=== PATIENT | female | born 1995 | race Asian ===

== ENCOUNTER 2024-07-20 13:22 | Emergency (ER) | payer SELFPAY ==
[2024-07-20 13:24] VITALS: BP 160/106
--- NOTE | 2024-07-20 13:28 | ED.GENMED ---
ED Provider Triage
<Usman Olson PA-C - Last Filed: 07/20/24 13:39>
-
Patient seen by provider in Triage?: Seen in Triage
Attestation: A medical screening examination has been initiated by a qualified medical provider. Based on the assessment performed at this time, it has been determined that an emergent medical condition may exist and the patient has been informed
that further medical evaluation and possible additional diagnostic testing may be needed.
HPI: 29-year-old female presents the emergency department due to vaginal bleeding. She states that this began with her normal menstrual cycle however has not tapered off as expected. Has not been bleeding for 10 days. 4-5 tampons or pads daily.
Denies shortness of breath or fatigue. Came to the ER because her LOAD CHECKER did not return her phone calls
GENERAL: Alert , in no apparent distress
EYE: No visual abnormalities.
NECK: Trachea midline
ENT: No visible abnormalities.
LUNGS: No acute respiratory distress
NEUROLOGICAL: Alert and oriented
SKIN: Skin intact. No visible changes.
MUSCULOSKELETAL: Moving extremities normally
PSYCH: Normal and appropriate interaction.
This is a medical evaluation conducted in person to initiate diagnostic evaluation and provide initial therapeutics. Please see further documentation by the treating clinician.
History of Present Illness
<Usman Olson PA-C - Last Filed: 07/20/24 13:39>
General
Chief Complaint: Vaginal Bleeding
Time Seen by Provider: 07/20/24 15:33
<Jaye Duenas PA-C - Last Filed: 07/21/24 00:16>
General
Source: patient
Exam Limitations: none
Nursing documentation reviewed up to this point in time: agreed with
History of Present Illness
History of Present Illness:
Patient is a 29-year-old female presenting for evaluation of vaginal bleeding. Patient states that she has had menstrual bleeding for the past 10 days, which seem to get slightly heavier recently. Patient states bleeding initially started as
her scheduled menstrual cycle but has not stopped. Patient denies any abdominal pain. Patient denies any chest pain, shortness of breath, lightheadedness, dizziness, etc. Patient is not sexually active.
Of note�patient does have a history of heavy periods for which she was recently started on an OCP. She has been taking OCP for 2.5 weeks although stopped due to the bleeding because she became nervous. Patient did have a pelvic ultrasound in
June which did not show any abnormalities. She does have an LOAD CHECKER who is located in [place] although has not contacted them yet.
Review of Systems
<Jaye Duenas PA-C - Last Filed: 07/21/24 00:16>
Review of Systems
Allergies reviewed?: Yes
All Other Systems: ROS reviewed and negative except as documented in HPI and ROS
Phy Exam
<Jaye Duenas PA-C - Last Filed: 07/21/24 00:16>
Physical Exam
Physical Exam:
Vitals: Patient's vital signs are stable. Afebrile
General: Patient is well appearing, no acute distress. Nontoxic appearing
Skin: Warm and dry, no rashes or lesions
Head: Normocephalic, atraumatic
Eyes: Sclera nonicteric. EOMs intact. No nystagmus.
Throat: Protecting airway
Neck: Normal ROM, no cervical spine tenderness, no meningismus
Cardiac: Regular rate and rhythm, no murmurs.
Pulm: Normal respiratory effort, no wheezes, rales, rhonchi heard on exam.
Abdomen: Abdomen soft and nontender
Extremities: No evidence of cyanosis or edema
Neuro: AAOx3. Grossly intact.
Psychiatric: Normal affect.
Course
<Usman Olson PA-C - Last Filed: 07/20/24 13:39>
Orders/Labs/Results
Orders:
Orders
07/20/24 13:28
Test Result ONCE
07/20/24 13:32
Complete Blood Count/With Diff Urgent
Comprehensive Metabolic Panel Urgent
HCG, Serum Qualitative Screen Urgent
Abnormal Lab Results
07/20/24
13:32
RBC 4.08 L 10^6/uL
(4.20-5.40)
Hgb 10.1 L g/dL
(12.0-16.0)
Hct 32.0 L %
(37.0-47.0)
MCV 78.4 L fL
(81.0-99.0)
MCH 24.8 L pg
(27.0-31.0)
MCHC 31.6 L g/dL
(33.0-37.0)
RDW 15.1 H %
(11.5-14.5)
MPV 12.8 H fL
(7.4-10.4)
Carbon Dioxide 21 L mmol/L
(22-30)
Creatinine 0.5 L mg/dL
(0.6-1.0)
Glucose 145 H mg/dl
(70-99)
07/20/24 13:32
07/20/24 13:32
Vital Signs
Initial and Last Documented VS:
Initial Vital Signs
Temp Pulse Resp BP Pulse Ox
98.1 F 93 20 160/106 100
07/20/24 13:24 07/20/24 13:24 07/20/24 13:24 07/20/24 13:24 07/20/24 13:24
Last Documented Vital Signs
Temp Pulse Resp BP Pulse Ox
99.2 F 92 18 146/91 100
07/20/24 15:07 07/20/24 15:07 07/20/24 15:07 07/20/24 15:07 07/20/24 15:07
<Jaye Duenas PA-C - Last Filed: 02/05/25 00:16>
Orders/Labs/Results
Orders:
Orders
07/20/24 13:28
Test Result ONCE
07/20/24 13:32
Complete Blood Count/With Diff Urgent
Comprehensive Metabolic Panel Urgent
HCG, Serum Qualitative Screen Urgent
Abnormal Lab Results
07/20/24
13:32
RBC 4.08 L 10^6/uL
(4.20-5.40)
Hgb 10.1 L g/dL
(12.0-16.0)
Hct 32.0 L %
(37.0-47.0)
MCV 78.4 L fL
(81.0-99.0)
MCH 24.8 L pg
(27.0-31.0)
MCHC 31.6 L g/dL
(33.0-37.0)
RDW 15.1 H %
(11.5-14.5)
MPV 12.8 H fL
(7.4-10.4)
Carbon Dioxide 21 L mmol/L
(22-30)
Creatinine 0.5 L mg/dL
(0.6-1.0)
Glucose 145 H mg/dl
(70-99)
07/20/24 13:32
07/20/24 13:32
Vital Signs
Initial and Last Documented VS:
Initial Vital Signs
Temp Pulse Resp BP Pulse Ox
98.1 F 93 20 160/106 100
07/20/24 13:24 07/20/24 13:24 07/20/24 13:24 07/20/24 13:24 07/20/24 13:24
Last Documented Vital Signs
Temp Pulse Resp BP Pulse Ox
99.2 F 92 18 146/91 100
07/20/24 15:07 07/20/24 15:07 07/20/24 15:07 07/20/24 15:07 07/20/24 15:07
<Tera Castañeda MD - Last Filed: 07/20/24 16:37>
Orders/Labs/Results
Orders:
Orders
07/20/24 13:28
Test Result ONCE
07/20/24 13:32
Complete Blood Count/With Diff Urgent
Comprehensive Metabolic Panel Urgent
HCG, Serum Qualitative Screen Urgent
Abnormal Lab Results
07/20/24
13:32
RBC 4.08 L 10^6/uL
(4.20-5.40)
Hgb 10.1 L g/dL
(12.0-16.0)
Hct 32.0 L %
(37.0-47.0)
MCV 78.4 L fL
(81.0-99.0)
MCH 24.8 L pg
(27.0-31.0)
MCHC 31.6 L g/dL
(33.0-37.0)
RDW 15.1 H %
(11.5-14.5)
MPV 12.8 H fL
(7.4-10.4)
Carbon Dioxide 21 L mmol/L
(22-30)
Creatinine 0.5 L mg/dL
(0.6-1.0)
Glucose 145 H mg/dl
(70-99)
07/20/24 13:32
07/20/24 13:32
Vital Signs
Initial and Last Documented VS:
Initial Vital Signs
Temp Pulse Resp BP Pulse Ox
98.1 F 93 20 160/106 100
07/20/24 13:24 07/20/24 13:24 07/20/24 13:24 07/20/24 13:24 07/20/24 13:24
Last Documented Vital Signs
Temp Pulse Resp BP Pulse Ox
99.2 F 92 18 146/91 100
07/20/24 15:07 07/20/24 15:07 07/20/24 15:07 07/20/24 15:07 07/20/24 15:07
<Jaye Duenas PA-C - Last Filed: 07/21/24 00:16>
MDM/Problems Addressed
Differential Diagnosis Includes:
Not limited to: Abnormal uterine bleeding, uterine fibroid, menstrual period, malignancy, etc.
MDM/Problems Addressed:
29-year-old female presenting with 10 days of abnormal uterine bleeding. No associated dizziness, lightheadedness, shortness of breath, abdominal pain. She was recently started on OCP by LOAD CHECKER. Patient is hemodynamically stable. Labs were sent
off in triage which show an anemia of 10.1. Patient does report her baseline hemoglobin is between 8-9 so this is actually improved. Chemistry without significant abnormalities. hCG negative. On physical exam�patient is in no apparent distress.
Abdomen is soft and nontender. Patient declines pelvic exam. I did contact patient's LOAD CHECKER who reviewed patient's very recent pelvic ultrasound report which showed no abnormalities. Ultimately�they recommend patient restarting OCP and staying
compliant with medication. Given patient's persistent bleeding�will trial TXA which was discussed with patient. She is agreeable to this. Ultimately�no indication for hospitalization. Patient's hemoglobin trending up. Patient remains
hemodynamically stable and well-appearing. Feel that she is stable for discharge home with LOAD CHECKER follow-up outpatient and very close return precautions. Patient expressed her understanding. Case seen with attending physician.
Chronic conditions affecting care:
N/A
Acute Exacerbation and/or Progression of Chronic Illness:
N/A
<Jaye Duenas PA-C - Last Filed: 07/21/24 00:16>
*Pulse Oximetry
Patient hypoxic: no
*EKG
Interpreted by ED Provider?: NA
*Coach Builder Interpretation
Rate: Coach Builder- N/A
*Critical Care Note
Total Time (30-74mins, 75-104mins- exclusive of procedures): Not Applicable
ED Attending Note
<Usman Olson PA-C - Last Filed: 07/20/24 13:39>
-
Portions of this chart may have been created with voice recognition software.� Occasional wrong word or��sound alike� substitutions may have occurred due to the inherent limitations of voice recognition software.
<Tera Castañeda MD - Last Filed: 07/20/24 16:37>
ED Attending Note
Patient seen and examined by attending physician: Yes
ED Attending Note:
I have seen and evaluated the patient with a [id number]-[id number] encounter. I have spoken to the advance practicer provider and involved in the medical history, the physical exam, medical decision making.
Evaluation and management service: agree unless noted differently below.
Results interpretation: agree unless noted differently below.
Focused HPI: 29-year-old female with no reported chronic issues presents to the ER for vaginal bleeding. She says that she has been dealing with heavy periods for quite some time. Saw an LOAD CHECKER in [place] and was prescribed control pills
and she has been taking these for the past few weeks although she skipped a dose yesterday. She says that her current menstrual period has lasted for longer than usual she says she usually bleeds for about 5 or 6 days but she has been bleeding for
about 10 days. She says she is today so through a pad every 2-3 hours. She denies any significant abdominal pain or cramping. She was concerned about this prolonged bleeding and so she came to the ER for assessment. She denies any other
complaints. She does have chronic anemia she says she takes an iron supplement.
Physical exam: Awake alert not in distress. Marginally hypertensive on my assessment 146/91. Heart rate 80s. Rest of vitals normal. Abdomen soft nontender to deep palpation. Patient declined pelvic exam.
Medical Decision Makin-year-old female presents for evaluation of dysfunctional uterine bleeding. She has been following with LOAD CHECKER and has been prescribed control pills. We sent off labs including a CBC which shows mild anemia�patient
reports baseline between 8 and 9 today is at 10. CMP no clinically significant abnormalities. hCG is negative. PA called patient's LOAD CHECKER recommended reinforcing compliance with OCPs and bleeding precautions. At this point no clear indication
for hospitalization. I do think it be reasonable to trial some TXA for her bleeding. Patient feels comfortable with this plan. We spoke in detail about return precautions including detailed bleeding precautions. All questions answered.
Discharge Plan
Departure
Patient Disposition: Home (Routine Discharge)
Date of Disposition: 07/20/24
Time of Disposition: 16:30
Patient with high blood pressure during this ER visit?: Yes
Condition: Good
Discharge Problem:
Vaginal bleeding
Instructions: Heavy Periods (DC), BLOOD PRESSURE
Prescriptions:
New
tranexamic acid 650 mg tablet
1,300 mg PO TID 5 Days Qty: 30 0RF
Referrals:
Melissa Cotton MD [Non-Admitting Privileges] - Tomorrow
Kaitlin Moore CRNP [Family Provider] -
Activity Restrictions/Additional Instructions:
Return to the emergency department with any persistent, heavy bleeding or bleeding associate with shortness of breath, lightheadedness, dizziness, severe abdominal pain, worsening current symptoms, or any other concerns
-As discussed�it is important that you restart your oral contraceptive pill and take it daily at the same time. You should continue her iron supplement as well
-A prescription for tranexamic acid has been sent to your pharmacy which may help in stopping the bleeding. You can take this 3 times a day for up to 5 days or until the bleeding stops.
-It is important stable hydrated.
-Contact her LOAD CHECKER tomorrow for further guidance and treatment
Monitor your symptoms closely and return to the emergency department with any acute worsening/new symptoms or any other concerns
Interventions
Interventions:
*Risk Screen - Suicide Last Done: 07/20/24 13:24
*General Assessment Last Done: 07/20/24 13:24
*Neglect/Abuse Screening Last Done: 07/20/24 13:24
ED- Fall Risk Assessment Last Done: 07/20/24 13:40
*ED COVID-19 Vaccine History Last Done: 07/20/24 13:40
*Nursing Disposition Last Done: 07/20/24 16:46
ED-Female Genitourinary Assessment Last Done: 07/20/24 13:43
Discharge Date and Time
Discharge Date/Time: 07/20/24 16:47
Print Language: LITHUANIAN
[2024-07-20 13:40] VITALS: BMI 24.9
[2024-07-20 14:02] LABS: % Eosinophils 2.1 % (0-6); % Immature Granulocytes 0.3 % (0-0.5); % Lymphocytes 30.7 % (20.5-51.1); % Monocytes 5.2 % (1.7-9.3); % Neutrophils 60.7 % (42.2-75.2); Absolute Basophils 0.1 10^3/uL (0-0.2); Absolute Eosinophils 0.1 10^3/uL (0-0.7); Absolute Lymphocytes 2.1 10^3/uL (1.2-3.4); Absolute Monocytes 0.4 10^3/uL (0.1-0.6); Absolute Neutrophils 4.1 10^3/uL (1.4-6.5); Hemoglobin 10.1 g/dL (12.0-16.0); Mean Corp Hgb Conc. 31.6 g/dL (33.0-37.0); Mean Corpuscular Hgb 24.8 pg (27.0-31.0); Mean Corpuscular Volume 78.4 fL (81.0-99.0); Mean Platelet Volume 12.8 fL (7.4-10.4); Nucleated Red Blood Cells % 0 %; Platelet Count 278 10^3/uL (130-400); Red Blood Cell Count 4.08 10^6/uL (4.20-5.40); Red Cell Dist. Width 15.1 % (11.5-14.5); White Blood Cell Count 6.7 10^3/uL (4.8-10.8)
[2024-07-20 14:07] LABS: HCG, Serum Qualitative Screen Negative
[2024-07-20 14:14] LABS: ALT (SGPT) 16 U/L (0-35); AST (SGOT) 28 U/L (14-36); Albumin 4.8 g/dl (3.5-5.0); Alkaline Phosphatase 66 U/L (38-126); Blood Urea Nitrogen 11 mg/dl (7-17); Calcium 8.8 mg/dl (8.4-10.2); Carbon Dioxide 21 mmol/L (22-30); Chloride 103 mmol/L (98-107); Estimated Creatinine Clearance > 125 ml/min; Glucose 145 mg/dl (70-99); Potassium 4.2 mmol/L (3.5-5.1); Sodium 136 mmol/L (135-145); Total Bilirubin 0.5 mg/dl (0.2-1.3); eGFR > 60.00
[2024-07-20 15:07] VITALS: BP 146/91
== END 2024-07-20 16:47 | disposition home or self-care (01) ==
LOC: EMR 13:22
PROVIDERS: Physician Assistant; EMERGENCY PHYSICIAN Emergency Medicine; FAMILY PHYSICIAN Nurse Practitioner Family
DX: N93.8 Other specified abnormal uterine and vaginal bleeding (principal); R03.0 Elevated blood-pressure reading, without diagnosis of hypertension
CPT/HCPCS: 99283; 80053; 84703; 85025